=== PATIENT | female | born 1970 | race Two or more races ===

== ENCOUNTER 2025-07-16 07:46 | Inpatient (IN) | payer MEDICAID, SELFPAY ==
[2025-07-16] VITALS (9 sets, daily range): BP systolic 124–168; BP diastolic 55–87; PULSE 58–84; RESP 16–20; TEMP 36.3–36.5; O2SAT 95–100; BMI 30.9
--- NOTE | 2025-07-16 | XR_ITS ---
Examinations: MRI Brain without intravenous contrast. MRA brain without intravenous contrast. MRA carotids without intravenous contrast 3-D vascular reconstructions Date and time of exam: July 16, 2025, 1659 hours INDICATIONS: Onset dizziness weakness beginning this morning Technique: Multiple axial and sagittal images of the brain have been obtained MRA brain carotid images without contrast obtained, including 3-D postprocessing, vascular maximum intensity projection images Findings: Sellaturcica is not enlarged. The optic chiasm and infundibular stalk are not remarkable. Prepontine and interpeduncular cisterns are not enlarged. No localized enlargement of the medulla or kevin. Fourth ventricle and cerebellar tonsils normal in position. Subacute hemorrhage is not seen. Fourth ventricle is midline. Mass in the cerebellopontine angle region is not evident. 7th and 8th nerve complexes exhibits symmetry. Globes are symmetrical with no retro-orbital mass. Increased white matter signal not seen, FLAIR images are degraded by patient motion Diffusion-weighted images demonstrate no foci restricted diffusion Mass-effect upon the ventricular system is not identified. MRA carotid images no carotid significant stenoses. MRA brain images no cerebral large vessel arterial occlusions Impression: Negative for acute hemorrhage mass effect or midline shift No acute infarct No findings diagnostic for demyelinating disease No significant carotid stenoses No cerebral large vessel arterial occlusions
--- NOTE | 2025-07-16 08:16 | PD.EDRME ---
Rapid Medical Screening Exam RME Arrival date/time: 07/16/25 07:46 Chief Complaint: Dizziness Time Seen by Provider: 07/16/25 07:55 Vital signs: Vital Signs Temperature 97.4 F 07/16/25 07:54 Pulse Rate 73 07/16/25 07:54 Respiratory Rate 18 07/16/25 07:54 Blood Pressure 145/82 H 07/16/25 07:54 Pulse Oximetry (%) 99 07/16/25 07:54 Oxygen Delivery Method Room Air 07/16/25 07:54 RME Narrative: 55-year-old female with a past medical history of vertigo who presents to the ER complaining of an acute exacerbation of her chronic vertigo however new onset speech changes where she states she is having difficulty speaking along with perioral numbness and chills which she woke up with after going to sleep at 830 and feeling normal. Denies vision changes, weakness. I briefly performed a screening evaluation to initiate work-up and expedite care. Complete history, physical exam, and plan of care is deferred to the provider in the main ED. Exam: Head: Normocephalic, atraumatic. Respiratory: Normal effort. No respiratory distress or accessory muscle use. Neuro: Speech normal. Skin: Warm, dry, normal color. Psych: Pleasant. Normal affect. Cooperative. Van negative Clinical Impression: Rule out CVA
--- NOTE | 2025-07-16 08:19 | XR_ITS ---
EXAMINATION: AP chest single view TECHNIQUE: AP portable semiupright chest single view Date and time: July 16, 2025, 0837 hours, comparison June 10, 2023 INDICATIONS: Focal neurologic deficit stroke today FINDINGS: No significant cardiac enlargement. No aspiration pneumonia. No pulmonary edema. Moderate osteopenia IMPRESSION: Negative for aspiration pneumonia
--- NOTE | 2025-07-16 08:19 | XR_ITS ---
Examination: CTA carotids with intravenous contrast CTA brain, head with intravenous contrast. 2-D sagittal, coronal reconstructions. 3-D reconstructions. Exam date and time: 07/16/2025 at 8:41 a.m. CTDI: vol (mGy) 44.5 DLP: (mGycm) 496 CLINICAL INDICATION: Slurred speech, dizziness evaluate for arterial abnormalities which might cause a possible stroke Technique: Multiple CTA axial brain, head carotid images post intravenous contrast injection 70 cc, Isovue-[id number]. 2-D sagittal, coronal reconstructions. 3-D reconstructions, 3-D post processing including vascular maximum intensity projection images. Low dose protocols were performed. One or more of the following dose reduction techniques were used; automated exposure control, adjustment of the mA and/or KV according to patient size, use of iterative reconstruction technique. Findings: In the cervical region the origin and appearance of both right and left common carotid arteries are normal. On the left side there is minimal calcification and very mild stenosis at the origin of the left internal carotid artery, but the left internal carotid artery is otherwise normal extending upwards into the left cavernous sinus. On the right the right common carotid and internal carotid artery are entirely normal throughout the cervical region, and again the right internal carotid extends normally upwards into the cavernous sinus. The left vertebral artery is normal throughout the cervical region extending up to the basilar artery. On the right side the vertebral artery is congenitally very tiny throughout its entire course, however in the posterior fossa it does communicate with the basilar artery. In the intracranial region, the proximal and peripheral portions of the anterior and middle cerebral arteries and posterior cerebral arteries are all normal In the left lobe of the thyroid gland there is a moderately large sharply circumscribed low-density lesion in the left lobe of the thyroid gland, measuring 19 x 24 mm in diameter. IMPRESSION: 1. There is very minimal atherosclerotic disease with a small calcification and very minimal insignificant narrowing of the origin of the left internal carotid artery at the bifurcation. 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 However it does communicate with the basilar artery. 3. There are a few atherosclerotic calcifications noted involving the intracavernous portion of the right and left internal carotid arteries, no significant narrowing is seen on either side 4. In all other respects this study is entirely normal 5 there is a moderately prominent sized low density sharply circumscribed nodule in the left lobe of the thyroid gland. It quite probably represents a cyst, but I strongly recommend thyroid ultrasound exam for better evaluation
--- NOTE | 2025-07-16 08:19 | EKG_ITS ---
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
--- NOTE | 2025-07-16 08:19 | XR_ITS ---
Examination: CT brain head without contrast. 2-D sagittal coronal reconstructions Date and time of exam: July 16, 2025, 0825 hours, comparison August 18, 2022 INDICATIONS: Stroke alert, onset slurred speech today CTDI: vol (mGy): 49.6 DLP: (mGycm): 961 Technique: Multiple CT axial sections of the brain have been obtained, 5 mm slice thickness. Contrast has not been administered. 2-D sagittal, coronal reconstructions have been obtained Low dose protocols were performed. One or more of the following dose reduction techniques were used; automated exposure control, adjustment of the mA and/or KV according to patient size, use of iterative reconstruction technique. Findings: No significant ventricular enlargement. Intra-axial or extra-axial hemorrhage density is not seen. No mass effect or midline shift Basal cisterns are not remarkable. Fourth ventricle is midline. Cranial vault intact. Impression: Negative for acute hemorrhage, mass effect or midline shift
--- NOTE | 2025-07-16 08:20 | PC.NURSE ---
Pt. in CT.
--- NOTE | 2025-07-16 08:25 | PC.NURSE ---
Dr. Tatum Meier on tele monitor assessing pt. and talking to pt.
--- NOTE | 2025-07-16 08:35 | PC.NURSE ---
Pt. laying on CT bed and sat pt. up, pt. vomited 200 mls green bile and was diaphoretic and pale, after sitting her up.
[2025-07-16 08:41] LABS: Basophils # (Auto) 0.0 Thou/mm3 (0.0-0.2); Basophils % (Auto) 1 % (0-2.5); Eosinophils # (Auto) 0.1 Thou/mm3 (0.0-0.5); Eosinophils % (Auto) 1 % (0-10); Hematocrit 35.9 % (36.0-46.0); Hemoglobin 12.0 g/dL (12.0-16.0); Immature Granulocytes Auto 0.06 Thou/mm3 (0.00-0.00); Lymphocytes # (Auto) 1.9 Thou/mm3 (1.0-4.8); Lymphocytes % (Auto) 24 % (10-50); Mean Corpuscular HGB Conc 33.4 g/dl (31.0-37.0); Mean Corpuscular Hemoglobin 31.2 pg (25.0-35.0); Mean Corpuscular Volume 93 fL (80-100); Monocytes # (Auto) 0.6 Thou/mm3 (0.0-0.8); Monocytes % (Auto) 7 % (0-12); Neutrophils # (Auto) 5.4 Thou/mm3 (1.8-7.7); Neutrophils % (Auto) 68 % (37-80); Nucleated Red Blood Cell # 0.00 Thou/mm3 (0.00-0.00); Nucleated Red Blood Cell % 0 /100 WBC (0); Platelet Count 328 Thou/mm3 (140-440); RDW Standard Deviation 43.7 fL (36.4-46.3); Red Blood Count 3.85 Miln/mm3 (4.00-5.20); White Blood Count 8.0 Thou/mm3 (3.6-11.0)
--- NOTE | 2025-07-16 08:42 | PC.NURSE ---
Sat pt. up again from laying position for chest X ray and pt. became diaphoretic , pale again. Pt. was dry heaving.
--- NOTE | 2025-07-16 08:45 | PC.NURSE ---
Pt. to room 18, via bed from CT.
[2025-07-16] MEDS: ONDANSETRON INJ 2 MG/ML INJ 2 ML 4 MG IVP ×2 (09:13→14:55)
[2025-07-16] MEDS: SODIUM CHLORIDE 0.9% 1000 ML 1,000 ML 100 ML IV ×2 (09:13→22:16)
[2025-07-16] MEDS: MECLIZINE HCL 25 MG TABLET 12.5 MG PO (09:13)
[2025-07-16 09:18] LABS: Alanine Aminotransferase 24 U/L (10-49); Albumin, Serum 4.8 gm/dL (3.5-5.0); Albumin/Globulin Ratio 1.7 (1.2-2.2); Alkaline Phosphatase 67 U/L (46-116); Anion Gap 13 (7-16); Aspartate Amino Transferase 33 U/L (0-34); BUN/Creatinine Ratio 23 Ratio (12-20); Bilirubin,Total 0.4 mg/dL (0.3-1.2); Blood Urea Nitrogen 23 mg/dL (9-23); Calcium 9.8 mg/dL (8.3-10.6); Calcium (Corrected) 9.8 mg/dL (8.5-10.1); Carbon Dioxide 21.9 mMol/L (20.0-31.0); Chloride 108 mMol/L (98-107); Creatinine (Component) 1.0 mg/dL (0.6-1.3); Estimated Creatinine Clearance 64.2 mL/min (>60); Globulin 2.8 gm/dL (2.3-3.5); Glucose 121 mg/dL (74-106); Magnesium 1.8 mg/dL (1.6-2.6); Osmolality,Calculated 289 (275-295); Potassium 4.4 mMol/L (3.4-5.1); Sodium 143 mMol/L (136-145); Total Protein 7.6 gm/dL (5.7-8.2); Troponin I < 0.002 ng/mL (0.0-0.045); eGFR > 60 See Note
[2025-07-16 09:25] LABS: INR 1.0 (0.9-1.3); Partial Thromboplastin Time 23.5 Seconds (22.0-36.0); Prothrombin Time 10.2 Seconds (9.0-12.2)
--- NOTE | 2025-07-16 09:25 | ESCONSULT_ITS ---
History of Present Illness Data of Consult Requesting Physician: Dr. Figueroa Primary Care Provider: Physician No Primary/Family Consult Narrative History of present illness: [facility] Patient Name:???BETY RICHARDS Date of :???1970 Identification Number:??? Date of Service:???07/16/2025 08:20:58 Diagnosis:?R42 - Dizziness/ Vertigo/ Giddiness ?R20.2 - Paresthesia of skin ?F41.9 - Anxiety Impression: ?Dizziness/vertigo ?Nausea and vomiting ?Sensory loss, upper lip ?Anxiety ?DDx: TIA, acute stroke, hypertensive emergency, peripheral vertigo ? ?History is mostly obtained from patient's daughter at bedside, it seems she was last seen normal at 8:30 PM last night and woke up this morning with severe nausea and vomiting as well as vertigo. She does have a history of vertigo diagnosed a year ago, however she also complained of upper lip numbness and she was apparently tremulous all over hence daughter notified EMS. ? ?On exam, patient appears anxious/tremulous all over and she continues to complain of nausea. No focal deficits on exam except she did complain of slight sensory loss in the upper lip across the face, as well as mild sensory loss in the left leg although no clear motor weakness was noted. No ataxia but patient is tremulous in all extremities, likely due to anxiety. She did not think she would be able to walk due to severe nausea and vomiting hence gait testing was deferred explained to them that. ? ?Explained to patient and family that her symptoms may be related to a posterior circulation stroke however peripheral vertigo continues to be a differential. CT head is negative for acute findings and given patient's last known normal was last night, she is not a candidate for acute thrombolytic therapy. I briefly explained to them about next steps including CTA head and neck imaging and potential mechanical thrombectomy if imaging indicates, she would like any interventions if indicated. For now she will need to stay back for further stroke workup, patient and daughter are agreeable. ? ?CT head is negative for acute findings, CTA negative for LVO ? ?PLAN: ?- Check lipid panel and HbA1c ?- CTA report mentions enlarged thyroid, US recommended by radiology ?- Start ASA 81 mg daily ?- MRI brain without contrast ?- Echocardiogram ?- PT/OT/Speech therapy ?- outpatient neurology follow up ?- If MRI brain negative for acute stroke, consider ENT follow-up for management of possible peripheral vertigo ? ? ?Discussed with ER attending Dr. Figueroa. Our recommendations are outlined below. Recommendations: ? Stroke/Telemetry Floor ? Neuro Checks ? Bedside Swallow Eval ? DVT Prophylaxis ? IV Fluids, Normal Saline ? Euglycemia and Avoid Hyperthermia (PRN Acetaminophen) Sign Out: ? Discussed with Emergency Department Provider Advanced Imaging: CTA Head and Neck Completed. LVO:No Patient is not a candidate for BRIANA Metrics: Last Known Well: 07/15/2025 20:30:00 Arrival Time: 07/16/2025 08:16:00 Activation Time: 07/16/2025 08:20:58 Initial Response Time: 07/16/2025 08:22:50Symptoms: vertigo, lip numbness, speech changes . Initial patient interaction: 07/16/2025 08:45:37 NIHSS Assessment Completed: 07/16/2025 08:53:38Patient is not a candidate for Thrombolytic. Thrombolytic Medical Decision: 07/16/2025 08:56:24Patient was not deemed candidate for Thrombolytic because of following reasons: LKW outside 4.[address] Head: I personally reviewed all the CT images that were available to me and it showed: no acute findings Primary Provider Notified of Diagnostic Impression and Management Plan on: 07/16/2025 09:14:11 History of Present Illness:Patient is a 55 year old Female. Patient was brought by EMS for symptoms of vertigo, lip numbness, speech changes . History is obtained from patient's daughter Kinza at bedside. Bedside washing machine operator helped with translation. Patient reportedly woke up at 6 AM this morning, and complained of severe vertigo, along with severe nausea and had multiple episodes of vomiting. Patient reportedly has a h/o vertigo diagnosed a year ago, but pt had additional complaints of lip numbness and changes in her speech (more effortful). Family had to get a wheelchair as she complained of feeling unsteady, and she looked tremulous. Daughter denies that patient has any known cardiovascular risk factors, she is apparently not on any prescription medications at this time. Past Medical History: ?There is no history of Hypertension ?There is no history of Diabetes Mellitus ?There is no history of Hyperlipidemia Medications: No Anticoagulant use? No Antiplatelet use Reviewed EMR for current medications Allergies:? Reviewed Social History: Smoking: No Alcohol Use: No Family History: There is no family history of premature cerebrovascular disease pertinent to this consultation ROS : 14 Points Review of Systems was performed and was negative except mentioned in HPI. Past Surgical History: There Is No Surgical History Contributory To Today?s Visit Examination: BP(168/87),?Pulse(70),?Blood Glucose(115) 1A: Level of Consciousness - Alert; keenly responsive?+ 0 1B: Ask Month and Age - Both Questions Right?+ 0 1C: Blink Eyes & Squeeze Hands - Performs Both Tasks?+ 0 2: Test Horizontal Extraocular Movements - Normal?+ 0 3: Test Visual Ochoa - Partial Hemianopia?+ 1 4: Test Facial Palsy (Use Grimace if Obtunded) - Minor paralysis (flat nasolabial fold, smile asymmetry)?+ 1 5A: Test Left Arm Motor Drift - No Drift for 10 Seconds?+ 0 5B: Test Right Arm Motor Drift - No Drift for 10 Seconds?+ 0 6A: Test Left Leg Motor Drift - No Drift for 5 Seconds?+ 0 6B: Test Right Leg Motor Drift - No Drift for 5 Seconds?+ 0 7: Test Limb Ataxia (FNF/Heel-Aleman) - No Ataxia?+ 0 8: Test Sensation - Mild-Moderate Loss: Less Sharp/More Dull?+ 1 9: Test Language/Aphasia - Normal; No aphasia?+ 0 10: Test Dysarthria - Normal?+ 0 11: Test Extinction/Inattention - No abnormality?+ 0 NIHSS Score:?3 NIHSS Free Text :?gait: Deferred as patient was having severe nausea and throwing up with any positional changes Pre-Morbid Modified Lazaro Scale: 0 Points = No symptoms at all Spoke with :?Dr. Figueroa This consult was conducted in real time using interactive audio and video technology. Patient was informed of the technology being used for this visit and agreed to proceed. Patient located in hospital and provider located at home/office setting. Patient is being evaluated for possible acute neurologic impairment and high probability of imminent or life-threatening deterioration. I spent total of 40 minutes providing care to this patient, including time for face to face visit via telemedicine, review of medical records, imaging studies and discussion of findings with providers, the patient and/or family. Dr Tatum Meier [facility] For Inpatient follow-up with [facility] physician please call [facility] at . As we are not an outpatient service for any post hospital discharge needs please contact the hospital for assistance. If you have any questions for the [facility] physicians or need to reconsult for clinical or diagnostic changes please contact us via [facility] at . Non-radiologist review of imaging performed to assist with emergent clinical decision-making. Remote physician workstations do not possess the same resolution, calibration, or diagnostic capabilities as hospital-based radiology reading stations, and formal radiologist read is necessary. Signature :Robert Meier cc:: cc: Meds Home Medications and Allergies Home Medications ?Medication ?Instructions ?Recorded ?Confirmed ?Type cyanocobalamin (vitamin B-12) 1,000 mcg PO QDAY #0 tab s 01/23/17 History 1,000 mcg tablet (Vitamin B-12) ferrous sulfate 325 mg (65 mg 325 mg PO BIDWM #0 tabs 01/23/17 History iron) tablet (Feosol) Allergies Allergy/AdvReac Type Severity Reaction Status Date / Time No Known Allergies Allergy Verified 06/10/23 21:53 Exam - Neurology Vital Signs Temp Pulse Resp BP Pulse Ox O2 Del Method 97.7 F 70 20 147/78 H 97 Room Air 07/16/25 09:00 07/16/25 09:00 07/16/25 09:00 07/16/25 09:00 07/16/25 09:00 07/16/25 09:00 Results Labs 07/16/25 08:22 07/16/25 08:22 Labs: Short CBC 07/16/25 Range/Units 08:22 WBC 8.0 (3.6-11.0) Thou/mm3 Hgb 12.0 (12.0-16.0) g/dL Hct 35.9 L (36.0-46.0) % Plt Count 328 (140-440) Thou/mm3 [facility] 07/16/25 08:22 Sodium 143 Potassium 4.4 Chloride 108 H Carbon Dioxide 21.9 BUN 23 Creatinine 1.0 Glucose 121 H Calcium 9.8 Cardiac Enzymes 07/16/25 Range/Units 08:22 Troponin I < 0.002 (0.0-0.045) ng/mL Liver Function 07/16/25 Range/Units 08:22 Total Bilirubin 0.4 (0.3-1.2) mg/dL AST 33 (0-34) U/L ALT 24 (10-49) U/L Alkaline Phosphatase 67 (46-116) U/L Albumin 4.8 (3.5-5.0) gm/dL
[2025-07-16 09:30] LABS: HCG Titer if Positive Negative
[2025-07-16 09:38] LABS: Collection Type, Urine Voided; Squamous Epithelial Cell,Urine 0 /hpf (0-5); WBC,Urine 0 /hpf (0-5)
[2025-07-16 09:49] LABS: RBC,Urine 2 /hpf (0-3)
[2025-07-16 09:50] LABS: Bilirubin,Urine Negative (Negative); Blood,Urine Negative (Negative); Clarity,Urine Clear (Clear/Hazy); Color,Urine Lt Yellow (Lt Yel-Yel); Culture Indicated,Urine Not Indicated; Glucose, Urine Negative (Negative); Ketones,Urine Negative (Negative); Leukocyte Esterase,Urine Negative (Negative); Nitrite,Urine Negative (Negative); PH,Urine 6.5 (5.0-7.0); Protein,Urine Trace (Neg - Trace); Specific Gravity,Urine 1.010 (1.001-1.035); Urobilinogen,Urine 0.2 mg/dL (0.0-1.0)
[2025-07-16 09:51] LABS: Amphetamine/Methamp Scrn,U Negative (Negative); Barbiturate Screen,Urine Negative (Negative); Benzodiazepines Screen,Urine Negative (Negative); Benzoylecgonine Screen, Ur Negative (Negative); Fentanyl Screen,Urine Negative (Negative); Opiate Screen,Urine Negative (Negative); THC Screen,Urine Negative (Negative)
--- NOTE | 2025-07-16 09:59 | PD.EDDIZZY ---
ED Dizzyness RME/HPI General Chief Complaint: Dizziness Stated Complaint: DIZZINESS AND VOMITING Time Seen by Provider: 07/16/25 07:55 Arrival date/time: 07/16/25 07:46 Limitations: no limitations RME / HPI RME / HPI Narrative: 55-year-old female with a past medical history of vertigo who presents to the ER complaining of an acute exacerbation of her chronic vertigo however new onset speech changes where she states she is having difficulty speaking along with perioral numbness and chills which she woke up with after going to sleep at 830 and feeling normal. Denies vision changes, weakness. I briefly performed a screening evaluation to initiate work-up and expedite care. Complete history, physical exam, and plan of care is deferred to the provider in the main ED. DR. HOLBROOK MAIN ED EVALUATION: 55 year old female with prior episodes of vertigo, otherwise no other stated medical history presents to the ED for evaluation of room-spinning dizziness beginning at 0600 AM today. Reportedly awoke with the symptoms which have remained constant since. States her dizziness is aggravated with head movements and only minimally improved with closing her eyes. Accompanied by nausea, vomiting, and difficulty walking due to feeling unsteady. Patient additionally reports feeling anxious and numbness sensation to her lips. No other associated symptoms reported. Denies fevers, chills, chest pain, cough, shortness of breath, abdominal pain, diarrhea, or urinary symptoms. Exam: Head: Normocephalic, atraumatic. Respiratory: Normal effort. No respiratory distress or accessory muscle use. Neuro: Speech normal. Skin: Warm, dry, normal color. Psych: Pleasant. Normal affect. Cooperative. Van negative Impression: Rule out CVA Related Data Home Medications ?Medication ?Instructions ?Recorded ?Confirmed cyanocobalamin (vitamin B-12) 1,000 mcg PO QDAY #0 tabs 01/23/17 1,000 mcg tablet (Vitamin B-12) ferrous sulfate 325 mg (65 mg 325 mg PO BIDWM #0 tabs 01/23/17 iron) tablet (Feosol) Previous Rx's ?Medication ?Instructions ?Recorded albuterol sulfate 90 mcg/actuation 2 puff inhalation Q6HR PRN 12/29/16 aerosol inhaler (ProAir HFA) WHEEZING #1 inh Hydrocodone/Acetaminophen * (NORCO 1 tab PO Q4H PRN ABDOMINAL PAIN 01/25/17 5/325 *) #30 tabs calcium 600 mg-D3 20 mcg-magnesium 1 tab PO QDAY #30 tabs 03/28/21 50 zs-Xi-vemtuk-raghav-boron tablet (Calcium 600-D3 Plus (mag-zinc)) meclizine 25 mg tablet 25 mg PO TID PRN dizziness #10 tabs 08/19/22 ondansetron 4 mg disintegrating 4 mg PO Q8H PRN nausea and 08/19/22 tablet vomiting #14 tabs meclizine 50 mg tablet (Antivert) 50 mg PO BID PRN dizziness #30 tabs 06/11/23 ondansetron 4 mg disintegrating 4 mg PO Q8H PRN nausea and 06/11/23 tablet vomiting #20 tabs Allergies Allergy/AdvReac Type Severity Reaction Status Date / Time No Known Allergies Allergy Verified 06/10/23 21:53 Review of Systems Review of Systems Systems Reviewed: All systems reviewed, normal except as documented Past Medical History Past Medical History CARDIAC: Negative Cardiac Disorders or Congestive Heart Failure RESPIRATORY: Negative Chronic Obstructive Pulmonary Disease (COPD) or Asthma GENITOURINARY: Negative Renal Disease ENDOCRINE: Negative Diabetes Mellitus Type 1 or Diabetes Mellitus Type 2 HEMATOLOGIC: Negative Sickle Cell Disease Social History SMOKING STATUS: Never smoker SUBSTANCE USE: does not use ED Exam General Limitations: Present no limitations General appearance: Present alert and anxious Head Head exam: Present atraumatic, normocephalic and normal inspection Eye Eye exam: Present normal appearance, PERRL and EOMI ENT ENT exam: Present normal exam, normal oropharynx and mucous membranes moist Neck Neck exam: Present normal inspection, full ROM and trachea midline Chest Chest inspection: Present normal inspection and symmetric chest wall rise Respiratory Respiratory exam: Present normal lung sounds bilaterally Cardiovascular Cardiovascular exam: Present regular rate, normal rhythm and normal heart sounds Abdominal Exam Abdominal exam: Present soft and normal bowel sounds Extremities Exam Extremities exam: Present normal inspection and full ROM Back Exam Back exam: Present normal inspection and full ROM Neurological Exam Neurological exam: Present alert, oriented X3, CN II-XII intact and other (On my examination, patient is neurologically intact ); Absent motor sensory deficit Psychiatric Psychiatric exam: Present anxious Skin Skin exam: Present warm, dry, intact and normal color Course Quality Measures Suspected type of Stroke: Non Acute Last known well (date): 07/15/25 Last known well (time): 20:30 Tenecteplase given: Reason(s) TPA not given: Outside the time window not given stroke Orders Category Date Time Status Bedside Blood Glucose NOW Care 07/16/25 08:19 Active COVID-19 Screening Questionnaire NOW Care 07/16/25 09:48 Active Service Team Leader NOW Care 07/16/25 08:19 Active Continuous Pulse Oximetry NOW Care 07/16/25 08:19 Completed Decision to Admit X1 Care 07/16/25 09:48 Active EKG (ED ONLY) *Do not use* NOW Care 07/16/25 08:19 Completed In and Out Catheter NEEDED Care 07/16/25 08:19 Active Insert IV NOW Care 07/16/25 08:19 Active NIH Stroke Scale now Care 07/16/25 08:19 Active NPO NOW Care 07/16/25 08:19 Active Nurse Swallow Screen x1 Care 07/16/25 08:19 Active Consult to Neurology / Tele-Neurology Routine Cons 07/16/25 08:[address] angio stroke protocol Stat Exams 07/16/25 08:[address] stroke protocol Stat Exams 07/16/25 08:19 Completed EKG (ED Only) Stat Exams 07/16/25 08:19 Draft XR chest 1V portable Stat Exams 07/16/25 08:19 Completed CBC Stat Lab 07/16/25 08:22 Completed Comprehensive Metabolic Panel Stat Lab 07/16/25 08:22 Completed Drug Screen,Urine Stat Lab 07/16/25 09:33 Completed HCG Titer if Positive Stat Lab 07/16/25 08:22 Completed Magnesium Stat Lab 07/16/25 08:22 Completed Partial Thromboplastin Time Stat Lab 07/16/25 08:22 Completed Prothrombin Time with INR Stat Lab 07/16/25 08:22 Completed Troponin I Stat Lab 07/16/25 08:22 Completed Urinalysis, C/S if Indicated Stat Lab 07/16/25 09:33 Completed Aspirin [Ecotrin] Med 07/16/25 09:41 Discontinued 81 mg PO X1 ONE Labetalol* IV [Trandate IV] Med 07/16/25 08:19 Active 10 mg IVP Q15M PRN Meclizine HCl [Antivert] Med 07/16/25 08:55 Discontinued 12.5 mg PO X1 ONE Ondansetron Inj [Zofran Inj] Med 07/16/25 08:19 Active 4 mg IVP Q4HR PRN Sodium Chloride 0.9% 1000 ml [Ns] 1,000 ml Med 07/16/25 09:00 Active IV 100 mls/hr Oxygen Delivery NOW RT 07/16/25 08:19 Active Vital Signs Vital signs: Vital Signs Temperature 97.4 F 07/16/25 07:54 Pulse Rate 73 07/16/25 07:54 Respiratory Rate 18 07/16/25 07:54 Blood Pressure 145/82 H 07/16/25 07:54 Pulse Oximetry (%) 99 07/16/25 07:54 Oxygen Delivery Method Room Air 07/16/25 07:54 Pulse ox is 99% on room air which is adequate. Dizziness MDM Narrative MDM Narrative:: I, Nancy Marino, am scribing for and in the presence of Dr. Holbrook. 0914a: I spoke with teleneurologist Dr. Meier. States patient is not a TNK candidate, LKW > 4.5 hours. 0945a: I spoke with hospitalist team A for admission. Discussed patients PMHx, HPI, ED course, exam findings, labs, and radiology results. The hospitalist agree to accept the patient for admission. Patient data External records reviewed:: [facility] previous records Clinical information provided by:: patient Social determinants that could affect healthcare access:: none Patient has the following chronic illnesses:: No chronic medical hx reported Prior episodes of vertigo, first occurring ~ 1 year ago. How is presenting disease/condition affected by chronic disease/condition?: no chronic disease Evaluation data The following diagnostics were reviewed and interpreted by me:: lab results, radiology exam(s) and EKG tracing(s) (EKG @ 09:00 AM, interpreted by me, normal sinus rhythm, rate 68, no STEMI. ) Lab and/or radiology exams considered but not ordered:: None Interpretation Summary: Ordering Physician: Rip Luong PA-C Date of Service: 07/16/25 Procedure(s): XR chest 1V portable Accession Number(s): [id number] cc: Angelo Mireles MD; Rip Luong PA-C~ EXAMINATION: AP chest single view TECHNIQUE: AP portable semiupright chest single view Date and time: July 16, 2025, 0837 hours, comparison June 10, 2023 INDICATIONS: Focal neurologic deficit stroke today FINDINGS: No significant cardiac enlargement. No aspiration pneumonia. No pulmonary edema. Moderate osteopenia IMPRESSION: Negative for aspiration pneumonia Dictated By: Angelo Mireles MD Signed By: <Electronically signed by Angelo Mireles MD in OV> 07/16/25 0907 Ordering Physician: Rip Luong PA-C Date of Service: 07/16/25 Procedure(s): CT stroke protocol Accession Number(s): [id number] cc: Angelo Mireles MD; Rip Luong PA-C~ Examination: CT brain head without contrast. 2-D sagittal coronal reconstructions Date and time of exam: July 16, 2025, 0825 hours, comparison August 18, 2022 INDICATIONS: Stroke alert, onset slurred speech today CTDI: vol (mGy): 49.6 DLP: (mGycm): 961 Technique: Multiple CT axial sections of the brain have been obtained, 5 mm slice thickness. Contrast has not been administered. 2-D sagittal, coronal reconstructions have been obtained Low dose protocols were performed. One or more of the following dose reduction techniques were used; automated exposure control, adjustment of the mA and/or KV according to patient size, use of iterative reconstruction technique. Findings: No significant ventricular enlargement. Intra-axial or extra-axial hemorrhage density is not seen. No mass effect or midline shift Basal cisterns are not remarkable. Fourth ventricle is midline. Cranial vault intact. Impression: Negative for acute hemorrhage, mass effect or midline shift Dictated By: Angelo Mireles MD Signed By: <Electronically signed by Angelo Mireles MD in OV> 07/16/25 0832 Ordering Physician: Rip Luong PA-C Date of Service: 07/16/25 Procedure(s): CT angio stroke protocol Accession Number(s): [id number] cc: Angelo Kate MD; Rip Luong PA-C~ Examination: CTA carotids with intravenous contrast CTA brain, head with intravenous contrast. 2-D sagittal, coronal reconstructions. 3-D reconstructions. Exam date and time: 07/16/2025 at 8:41 a.m. CTDI: vol (mGy) 44.5 DLP: (mGycm) 496 CLINICAL INDICATION: Slurred speech, dizziness evaluate for arterial abnormalities which might cause a possible stroke Technique: Multiple CTA axial brain, head carotid images post intravenous contrast injection 70 cc, [id number]. 2-D sagittal, coronal reconstructions. 3-D reconstructions, 3-D post processing including vascular maximum intensity projection images. Low dose protocols were performed. One or more of the following dose reduction techniques were used; automated exposure control, adjustment of the mA and/or KV according to patient size, use of iterative reconstruction technique. Findings: In the cervical region the origin and appearance of both right and left common carotid arteries are normal. On the left side there is minimal calcification and very mild stenosis at the origin of the left internal carotid artery, but the left internal carotid artery is otherwise normal extending upwards into the left cavernous sinus. On the right the right common carotid and internal carotid artery are entirely normal throughout the cervical region, and again the right internal carotid extends normally upwards into the cavernous sinus. The left vertebral artery is normal throughout the cervical region extending up to the basilar artery. On the right side the vertebral artery is congenitally very tiny throughout its entire course, however in the posterior fossa it does communicate with the basilar artery. In the intracranial region, the proximal and peripheral portions of the anterior and middle cerebral arteries and posterior cerebral arteries are all normal In the left lobe of the thyroid gland there is a moderately large sharply circumscribed low-density lesion in the left lobe of the thyroid gland, measuring 19 x 24 mm in diameter. IMPRESSION: 1. There is very minimal atherosclerotic disease with a small calcification and very minimal insignificant narrowing of the origin of the left internal carotid artery at the bifurcation. 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 However it does communicate with the basilar artery. 3. There are a few atherosclerotic calcifications noted involving the intracavernous portion of the right and left internal carotid arteries, no significant narrowing is seen on either side 4. In all other respects this study is entirely normal 5 there is a moderately prominent sized low density sharply circumscribed nodule in the left lobe of the thyroid gland. It quite probably represents a cyst, but I strongly recommend thyroid ultrasound exam for better evaluation Dictated By: Angelo Kate MD Signed By: <Electronically signed by Angelo Kate MD in OV> 07/16/25 0910 Medications / Prescriptions Medications or Prescriptions considered but not ordered:: None Medication administrations:: Medication Administration History Acetaminophen (Acetaminophen 325 Mg Tablet) 650 mg PO Q6H PRN PRN Reason: Fever >101.5 Stop: 08/15/25 10:06 Dextrose (Dextrose 50%-Water Inj 50 Ml Syringe) 25 ml IV Q15MIN PRN PRN Reason: BG 50-70 responsive npo pt Stop: 08/15/25 10:06 Glucagon (Glucagon Inj 1 Mg Vial) 1 mg IM Q15MIN PRN PRN Reason: BG <70, and no IV access Sodium Chloride (Ns) 1,000 mls @ 100 mls/hr IV .Q10H JUAN ALBERTO Stop: 08/15/25 08:59 Last Admin: 07/16/25 09:13 Dose: 100 mls/hr Documented By: BEAR Labetalol HCl (Labetalol Inj 5 Mg/Ml Vial 4 Ml) 10 mg IVP Q15M PRN PRN Reason: hypertension Ondansetron HCl (Ondansetron Inj 2 Mg/Ml Inj 2 Ml) 4 mg IVP Q4HR PRN PRN Reason: NAUSEA OR VOMITING Stop: 08/15/25 08:18 Last Admin: 07/16/25 09:13 Dose: 4 mg Documented By: FC Discontinued Medications Aspirin (Aspirin Ec 81 Mg Tabec) 81 mg PO X1 ONE Stop: 07/16/25 09:42 Last Admin: 07/16/25 10:14 Dose: 81 mg Documented By: BEAR Meclizine HCl (Meclizine Hcl 25 Mg Tablet) 12.5 mg PO X1 ONE Stop: 07/16/25 08:56 Last Admin: 07/16/25 09:13 Dose: 12.5 mg Documented By: BEAR See above Consultations Consultation(s) initiated? (list below): Yes Consultation #1 (Physician, Specialty, Details): See MDM Diagnosis Dizziness Differential Diagnosis: benign paroxysmal positional vertigo, orthostatic hypotension, cerebrovascular accident, transient cerebral ischemia and other (anxiety ) Most likely diagnosis given after review of the tests above:: Dizziness Nausea and vomiting Paresthesia Anxiety Admission Indicated Admission indicated?: indicated Admission Request Was there a request for admission?: Yes Admission Attestation Admission request attestation: Discussed case with [] from Hospitalist service regarding admission. Discussed patients ED course, exam findings, labs, and radiology results. The Hospitalist [agrees,declines] to accept the patient for admission. Disposition Plan Disposition Plan: Admit Discharge Plan Plan Patient Disposition: Admit Acute Care w/in Hospital Problem List Clinical Impression: Dizziness, Nausea and vomiting, Paresthesia, Anxiety
[2025-07-16] MEDS: ASPIRIN EC 81 MG TABEC PO (10:14)
--- NOTE | 2025-07-16 10:18 | XR_ITS ---
EXAMINATION: Thyroid sonography complete TECHNIQUE: Grayscale sonographic images thyroid lobes Date and time: July 16, 2025, 11:00 a.m. INDICATIONS: CT examination July 16, 2025 left thyroid nodule FINDINGS: Right thyroid 5.2 cm Mid pole nodule 4 x 5 mm Lower pole nodule 13 x 8 mm Left thyroid 5.6 cm Upper pole nodule 6 x 6 mm Mid pole hypoechoic nodule 25 x 18 x 19 mm IMPRESSION: Bilateral thyroid nodules as above Consider ultrasound-guided fine-needle aspiration of the large nodule in the mid left thyroid lobe
--- NOTE | 2025-07-16 10:22 | ESHP_ITS ---
<Statement entered by Ramakrishna Argueta MD - 07/16/25 15:36> Patient was examined and case was reviewed with team including attending physician. Note reviewed, I agree with most of its contents and agree with the patient's care as documented by Dr. Holt 55y/o F with no PMHx who presented to the ED due to dizziness and vertigo. At 6am patient had episodes of dizziness with multiple episodes with non-bloody vomiting. She also endorses that this has happened in the past usually in the winter months. Stroke alert was called and Head CT and Head/Neck CTA showed no acute hemorrhage, no midline shift, no mass effect or LVO. Tele neuro was consulted and recommended MRI. Will complete rest of CVA work up. Case discussed with my attending Dr. Adrian Argueta MD PGY-2 Documentation for date of: 07/16/25 HPI History of Present Illness Chief complaint: Dizziness, vertigo History of present illness: Mrs. Peralta is a Israeli speaking, 55F with no known past medical history presented to the ED for dizziness and vertigo. Patient reports at approximately 6AM this morning, she started to experience dizziness that is worse with motion, causing her to feel nauseous and subsequently vomited. She describes that the room was spinning with head motion. Patient states that she had similar episode last year around Winter time, where she was diagnosed with vertigo. She denies chest pain, shortness of breathe, focal weakness, vision change, numbness, diarrhea, chill, however, does endorse parietal headache. Patient had no prior history of TIA, stroke, heart disease, DVT, or clotting disorder. Patient does not see a PCP or any specialists. She does not take any prescription medication. A stroke alert was initiated in the ED. CT head is negative for acute findings and CTA negative for LVO. Tele-Neuro was consulted by ED team. Given negative CT head findings and LWK last night, she was not a candidate for thrombolytic. On exam, patient was resting comfortably in bed, GCS 15, with no focal neuro deficit. CN II - XII intact. This patient was admitted for CVA rule out. ED Course In the ED, WBC 8, Hgb 12, Na 143, K 4.4, BUN 23, Automatic Buffing Wheel Former 1.0, Glucose 121. VSS, Afebrile. Patient was GCS 15 with NIHSS of 0. Stroke Alert initiated, given LWK last night, not a candidate for TnK. CTH and CTA H/N unremarkable. Patient was given ASA 81mg, NaCl 1L, Meclizine 12.5mg, and Zofran 4mg. ROS * Constitutional: NAD, a/o x 3, denies fever/chills. * GI: Denies nausea, vomiting. * CV: Denies chest pain or palpitations. * Resp: Denies SOB, cough * : Denies dysuria, CVA tenderness, suprapubic tenderness. * Neuro: +dizziness with motion, no focal deficits. Past Medical History * Denies Social History * Lives at home, independent baseline. * Denies smoke or drug use. Surgical History * Unknown Allergies * NKDA Home Meds * Tylenol PRN Exam Vital Signs Temp Pulse Resp BP Pulse Ox O2 Del Method 97.7 F 70 20 147/78 H 97 Room Air 07/16/25 09:00 07/16/25 09:00 07/16/25 09:00 07/16/25 09:00 07/16/25 09:00 07/16/25 09:00 Narrative Exam General: Awake and in no acute distress. A/O x 3. GCS 15. HEENT: Normocephalic, atraumatic, mucous membranes moist. Heart: Regular rate and rhythm Lungs: Clear to auscultation with no wheezing or crackles. Abdomen: Soft, nondistended, nontender. No guarding or rebound tenderness. Neurologic: Alert and oriented x3, no gross neurological deficit, and patient able to move all 4 extremities. CN II-XII intact. Extremities: 5/5 strength in both UE and LE. Slight decrease in sensation in LLE. Skin: Dry, clean, intact. No rash. No ecchymoses. Results: Labs 07/17/25 05:15 07/17/25 05:15 Labs: Short CBC 07/16/25 Range/Units 08:22 WBC 8.0 (3.6-11.0) Thou/mm3 Hgb 12.0 (12.0-16.0) g/dL Hct 35.9 L (36.0-46.0) % Plt Count 328 (140-440) Thou/mm3 [facility] 07/16/25 08:22 Sodium 143 Potassium 4.4 Chloride 108 H Carbon Dioxide 21.9 BUN 23 Creatinine 1.0 Glucose 121 H Calcium 9.8 Cardiac Enzymes 07/16/25 Range/Units 08:22 Troponin I < 0.002 (0.0-0.045) ng/mL Liver Function 07/16/25 Range/Units 08:22 Total Bilirubin 0.4 (0.3-1.2) mg/dL AST 33 (0-34) U/L ALT 24 (10-49) U/L Alkaline Phosphatase 67 (46-116) U/L Albumin 4.8 (3.5-5.0) gm/dL Quality Measures Quality Measures stroke Suspected type of Stroke: Non Acute Last known well (date): 07/15/25 Last known well (time): 20:30 Tenecteplase given: Reason(s) Tenecteplase not given: Outside the time window not given Rehab services: PT evaluation ordered VTE Prophylaxis: pharmaceutical Antithrombotic by day 2:: ordered Statin ordered: <75 y/o high intensity dose Anticoagulation ordered for A-fib or flutter (current or hx): not indicated Medications Home Medications and Allergies Home Medications ?Medication ?Instructions ?Recorded ?Confirmed ?Type cyanocobalamin (vitamin B-12) 1,000 mcg PO QDAY #0 tab s 01/23/17 07/16/25 History 1,000 mcg tablet (Vitamin B-12) ferrous sulfate 325 mg (65 mg 325 mg PO BIDWM #0 tabs 01/23/17 07/16/25 History iron) tablet (Feosol) Allergies Allergy/AdvReac Type Severity Reaction Status Date / Time No Known Allergies Allergy Verified 06/10/23 21:53 Visit Medications Acetaminophen (Acetaminophen 325 Mg Tablet) 650 mg PO Q6H PRN PRN Reason: Fever >101.5 Stop: 08/15/25 10:06 Dextrose (Dextrose 50%-Water Inj 50 Ml Syringe) 25 ml IV Q15MIN PRN PRN Reason: BG 50-70 responsive npo pt Stop: 08/15/25 10:06 Glucagon (Glucagon Inj 1 Mg Vial) 1 mg IM Q15MIN PRN PRN Reason: BG <70, and no IV access Sodium Chloride (Ns) 1,000 mls @ 100 mls/hr IV .Q10H JUAN ALBERTO Stop: 08/15/25 08:59 Last Admin: 07/16/25 09:13 Dose: 100 mls/hr Labetalol HCl (Labetalol Inj 5 Mg/Ml Vial 4 Ml) 10 mg IVP Q15M PRN PRN Reason: hypertension Ondansetron HCl (Ondansetron Inj 2 Mg/Ml Inj 2 Ml) 4 mg IVP Q4HR PRN PRN Reason: NAUSEA OR VOMITING Stop: 08/15/25 08:18 Last Admin: 07/16/25 09:13 Dose: 4 mg Discontinued Medications Aspirin (Aspirin Ec 81 Mg Tabec) 81 mg PO X1 ONE Stop: 07/16/25 09:42 Last Admin: 07/16/25 10:14 Dose: 81 mg Meclizine HCl (Meclizine Hcl 25 Mg Tablet) 12.5 mg PO X1 ONE Stop: 07/16/25 08:56 Last Admin: 07/16/25 09:13 Dose: 12.5 mg Assessment & Plan Plan Mrs. Peralta is a Israeli speaking, 55F with no known past medical history presented to the ED for dizziness and vertigo. GCS 15, NIHSS 0. Stroke alert initiated in ED with normal CT findings. Patient was admitted for CVA r/o. #Rule out CVA #BPPV #Dizziness #Peripheral vertigo #Headache Stroke alert initiated in the ED. GCS15, NIHSS0, no focal neuro deficit. Similar episode prior in 2022, was diagnosed with vertigo. - In-house neurology consulted, appreciate recs - MRI brain stroke protocol - Echocardiogram with bubble study - PT/OT/Speech therapy - Head of bed elevation 30 degrees - Neuro Checks Q4H - Bedside Swallow Eval - Euglycemia and Avoid Hyperthermia (PRN Acetaminophen) - Zofran 4mg PRN - Meclizine 25mg PO PRN - ASA 81mg PO QD - Atorvastatin 80mg PO HS - Pending HbA1c and lipid panel #Thyroid nodule CTA H/N noted circumscribed nodule in the left lobe of the thyroid gland. - Pending thyroid panel (TSH, T3, T4) - Thyroid Health maintenance Dispo: CVA r/o DVT prophylaxis: SCDs GI prophylaxis: N/A Antibiotics: N/A Bowel Regimen: N/A Diet: Regular diet after passing swallow screen Lines: Peripheral IV Code status: Full code Case discussed with my senior resident Dr. Ozuna Case discussed with my attending Dr. Adrian Holt DO PGY 1 Attending Provider Attestation/Addendum I have seen and examined the patient. I was physically present for the villafuerte portions of the services provided including history, physical exam, diagnosis, treatment plans and orders. I agree with assessment and plan of care as documented by residents. After examination of the patient and review of the clinical data I feel that this patient needs admission to the hospital for further treatment/evaluation. Even though this this note was carefully revised there may still be minor errors in plodding machine operator due to voice recognition software. Se Campbell MD
--- NOTE | 2025-07-16 10:31 | ECHO_ITS ---
Patient Info Name: Radha Quiles Age: 55 years : 1970 Gender: Female Ht: 163 cm Wt: 82 kg BSA: 1.95 m2 BP: 147 / 78 mmHg HR: 70 bpm Exam Date: 07/16/2025 12:16 PM Admit Date: 07/16/2025 Site: [facility] Room Number: ED [id number] Patient Status: I Exam Type: CA echo doppler complete Informatics Pharmacist: Sis Santiago Ordering Physician: Ernie Holt Study Info Indications Dizziness, vertigo, stroke alert ED - Contrast/Agitated Saline Contrast/Ag. Saline: Agitated Saline Amount: --- ml Primary Location: [facility] Left Ventricular Outflow Tract Name Value Normal LVOT 2D LVOT Diameter 1.9 cm LVOT Doppler LVOT Peak Velocity 121 cm/s LVOT Mean Gradient 3 mmHg LVOT VTI 26 cm LVOT VTI/AV VTI Ratio 0.7 LVOT Stroke Volume 73 ml Pulmonic Valve Name Value Normal PV Doppler PV Peak Velocity 115 cm/s Mitral Valve Name Value Normal MV Doppler MV Decel [place] 460 cm/s2 MV PHT 63 ms MV Area (PHT) 3.5 cm2 4.0-5.0 MV Diastolic Function MV E Peak Velocity 100 cm/s MV A Peak Velocity 101 cm/s MV E/A 1.0 MV Annular TDI MV Septal e' Velocity 9.1 cm/s MV E/e' (Septal) 10.9 MV Lateral e' Velocity 10.2 cm/s MV E/e' (Lateral) 9.8 MV e' Average 9.67 cm/s MV E/e' (Average) 10.4 Tricuspid Valve Name Value Normal TV Regurgitation Doppler TR Peak Velocity 248 cm/s Estimated PAP/RSVP RA Pressure 3 mmHg <=5 PA Systolic Pressure 28 mmHg <36 RV Systolic Pressure 28 mmHg <36 Aortic Valve Name Value Normal AV 2D/MM AV Cusp Sep (MM) 1.5 cm AV Doppler AV Peak Velocity 168 cm/s AV Mean Gradient 5 mmHg AV VTI 38 cm AV Area (Cont Eq VTI) 1.9 cm2 >=3.0 AV Area (Cont Eq Silvio) 2.0 cm2 AV DI (Silvio) 0.72 AV Regurgitation 2D LVOT Area 2.8 cm2 Ventricles Name Value Normal LV Dimensions 2D/MM IVS Diastolic Thickness (2D) 1.0 cm 0.6-0.9 LVID Diastole (2D) 4.3 cm 3.8-5.2 LVIW Diastolic Thickness (2D) 1.0 cm 0.6-0.9 LVID Systole (2D) 2.7 cm 2.2-3.5 LVOT Diameter 1.9 cm LV Mass (2D Cubed) 142.49 g 67.00-162.00 LV Mass Index (2D Cubed) 73 g/m2 43-95 Relative Wall Thickness (2D) 0.47 <=0.42 IVS/LVIW Diastolic Thickness (2D) 1.00 0.00-1.50 LV Fractional Shortening/Ejection Fraction 2D/MM LV Fractional Shortening (2D) 37 % 27-45 LV EF (2D Teichholz) 67 % Atria Name Value Normal LA Dimensions LA Volume (4C A-L) 78 ml LA Volume (BP A-L) 79 ml Left Ventricle Left ventricular chamber dimension is normal. Left ventricular systolic function is normal with visually estimated ejection fraction of 60-65%. There is mild concentric hypertrophy noted in the left ventricle. Left ventricular segmental wall motion is normal. There is grade I diastolic dysfunction in the left ventricle. Right Ventricle Right ventricular chamber dimension is normal. Right ventricular systolic function is normal. Left Atrium Left atrial chamber dimension is mildly enlarged. Right Atrium Right atrial chamber dimension is normal. Aortic Valve The aortic valve is trileaflet. There is no aortic valve sclerosis. There is no aortic valve stenosis with a peak velocity of 168 cm/s, mean gradient of 5 mmHg, and aortic valve area of 1.9 cm2. There is no aortic valve regurgitation. Pulmonic Valve The pulmonic valve is normal. There is no pulmonic valve stenosis. There is no pulmonic regurgitation. Mitral Valve The mitral valve has normal leaflets. There is no mitral valve stenosis. There is mild mitral valve regurgitation. Tricuspid Valve The tricuspid valve leaflets are normal. There is no tricuspid valve stenosis. There is mild tricuspid valve regurgitation. No pulmonary hypertension, estimated pulmonary arterial systolic pressure is 28 mmHg and systemic blood pressure of 147 mmHg in systole. Pericardium/Pleural The pericardium appears normal. There is trivial pericardial effusion with no tamponade. No pleural effusion visualized. Inferior Vena Cava Normal inferior vena cava with >50% collapse upon inspiration consistent with normal right atrial pressure, 3 mmHg. Aorta The aortic measurements are indexed to age and body surface area. The aortic root at the sinus of Valsalva is not well visualized. The prox ascending aorta is not well visualized. Summary 1. Left ventricle size is normal and systolic function is normal. Estimated ejection fraction is 60-65%. There is grade I diastolic dysfunction. 2. Right ventricle chamber size is normal and systolic function is normal. Estimated RVSP is 28 mmHg. 3. There is mild mitral and tricuspid valve regurgitation. Mild AV sclerosis noted. 4. Normal IVC with estimated RA pressure 3 mmHg. 5. Bubble study negative for any PFO or ASD. Report Signatures Finalized by Joseph Hoyt on 07/17/2025 01:03 AM
[2025-07-16 11:27] LABS: Glucose Estimated Average 120 mg/dL (80-131); Hemoglobin A1C 5.8 % Hgb (4.8-6.0)
[2025-07-16 14:31] LABS: T4 (Thyroxine) 9.1 mcg/dL (4.5-10.9)
[2025-07-16 14:46] LABS: Cardiac Risk Estimate 4.6 RATIO (3.7-5.6); Cholesterol 251 mg/dL (132-200); Free T3 3.1 pg/mL (2.3-4.2); HDL Cholesterol 54 mg/dL (40-60); LDL Cholesterol,Calculated 165 mg/dL (0-130); Thyroid Stimulating Hormone 1.04 uIU/mL (0.55-4.78); Triglycerides 159 mg/dL (30-150)
[2025-07-16] MEDS: MECLIZINE HCL 25 MG TABLET PO (17:52)
[2025-07-16] MEDS: ATORVASTATIN CALCIUM 20 MG TABLET 80 MG PO (20:34)
[2025-07-17] VITALS: BP 107/57; PULSE 76; RESP 12; TEMP 36.1; O2SAT 94
[2025-07-17 04:00] VITALS: BP 99/58; PULSE 82; PULSE 83; RESP 16; TEMP 36.2; O2SAT 98
[2025-07-17 05:49] LABS: Basophils # (Auto) 0.0 Thou/mm3 (0.0-0.2); Basophils % (Auto) 0 % (0-2.5); Eosinophils # (Auto) 0.1 Thou/mm3 (0.0-0.5); Eosinophils % (Auto) 2 % (0-10); Hematocrit 32.1 % (36.0-46.0); Hemoglobin 10.6 g/dL (12.0-16.0); Immature Granulocytes Auto 0.03 Thou/mm3 (0.00-0.00); Lymphocytes # (Auto) 2.9 Thou/mm3 (1.0-4.8); Lymphocytes % (Auto) 38 % (10-50); Mean Corpuscular HGB Conc 33.0 g/dl (31.0-37.0); Mean Corpuscular Hemoglobin 31.5 pg (25.0-35.0); Mean Corpuscular Volume 96 fL (80-100); Monocytes # (Auto) 0.7 Thou/mm3 (0.0-0.8); Monocytes % (Auto) 10 % (0-12); Neutrophils # (Auto) 3.9 Thou/mm3 (1.8-7.7); Neutrophils % (Auto) 50 % (37-80); Nucleated Red Blood Cell # 0.00 Thou/mm3 (0.00-0.00); Nucleated Red Blood Cell % 0 /100 WBC (0); Platelet Count 280 Thou/mm3 (140-440); RDW Standard Deviation 44.9 fL (36.4-46.3); Red Blood Count 3.36 Miln/mm3 (4.00-5.20); White Blood Count 7.7 Thou/mm3 (3.6-11.0)
[2025-07-17 06:17] LABS: Anion Gap 12 (7-16); BUN/Creatinine Ratio 19 Ratio (12-20); Blood Urea Nitrogen 19 mg/dL (9-23); Calcium 8.5 mg/dL (8.3-10.6); Carbon Dioxide 21.9 mMol/L (20.0-31.0); Chloride 111 mMol/L (98-107); Creatinine (Component) 1.0 mg/dL (0.6-1.3); Estimated Creatinine Clearance 64.2 mL/min (>60); Glucose 96 mg/dL (74-106); Magnesium 2.0 mg/dL (1.6-2.6); Osmolality,Calculated 290 (275-295); Phosphorous 4.1 mg/dL (2.4-5.1); Potassium 4.2 mMol/L (3.4-5.1); Sodium 145 mMol/L (136-145); eGFR > 60 See Note
[2025-07-17 08:00] VITALS: BP 132/75; PULSE 71; PULSE 80; RESP 14; TEMP 36.4; O2SAT 94
[2025-07-17] MEDS: ASPIRIN EC 81 MG TABEC PO (08:10)
[2025-07-17] MEDS: SODIUM CHLORIDE 0.9% 1000 ML 1,000 ML 100 ML IV ×2 (08:43→18:06)
--- NOTE | 2025-07-17 09:01 | PCS.ST ---
Interviewed during breakfast. No dysphagia. Cognitive/communication baseline. No formal ST services warranted.
--- NOTE | 2025-07-17 10:51 | ESPR_ITS ---
Documentation for date of: 07/17/25 Subjective - Hospitalist Subjective Interval history: Patient seen and examined at bedside this morning. Appears comfortable compared to yesterday. States that her headache has improved significantly and only has mild dizziness today. Underwent brain MRI yesterday, negative for stroke. Echocardiography showed normal left ventricular size and function, ejection fraction of 60 to 65%, negative bubble study. Awaiting physical therapy for evaluation of BPPV and in-house neurology recommendations. Review of Systems Review of Systems Systems Reviewed: All systems reviewed, normal except as documented Exam Vital Signs Temp Pulse Resp BP Pulse Ox O2 Del Method 96.9 F 75 15 117/79 96 Room Air 07/17/25 16:00 07/17/25 16:00 07/17/25 16:00 07/17/25 16:00 07/17/25 16:00 07/17/25 16:00 Narrative GENERAL: Well built male/female, in no acute distress, laying comfortably on bed HEENT: Normocephalic, atraumatic, extraocular movements intact, pupils equal and reactive to light NECK: Supple, no JVD or bruits. CARDIOVASULAR: RRR, S1 and S2 heard, without murmur, rubs or gallops. LUNGS/CHEST: Clear to auscultation bilaterally. No rails, rhonchi, or wheezing. ABDOMEN: Soft, nontender, with normal bowel sounds. No rebound, rigidity, or guarding. EXTREMITIES: No edema, clubbing or cyanosis. No joint deformity. Able to move all limbs. SKIN: Warm and dry without rashes. NEURO: Alert, awake and oriented x4. Cranial nerves: II through XII grossly intact. normal speech, able to answer questions and follow commands appropriately, strength and sensation normal and equal bilaterally, no focal neurological deficits PSYCHIATRIC: Normal mood and affect. Objective - Hospitalist Labs Diagram: 07/17/25 05:15 07/17/25 05:15 Labs: Laboratory Results - last 24 hr 07/17/25 05:15 WBC 7.7 RBC 3.36 L Hgb 10.6 L Hct 32.1 L MCV 96 MCH 31.5 MCHC 33.0 RDW Std Deviation 44.9 Plt Count 280 D Neut % (Auto) 50 Lymph % (Auto) 38 [place] % (Auto) 10 Eos % (Auto) 2 Baso % (Auto) 0 Neut # (Auto) 3.9 Lymph # (Auto) 2.9 [place] # (Auto) 0.7 Eos # (Auto) 0.1 Baso # (Auto) 0.0 Immature Gran # (Auto) 0.03 H Absolute Nucleated RBC 0.00 Immature Gran % 0 Nucleated RBC % 0 Sodium 145 Potassium 4.2 Chloride 111 H Carbon Dioxide 21.9 Anion Gap 12 BUN 19 Creatinine 1.0 Estim Creat Clear Calc 64.2 eGFR > 60 BUN/Creatinine Ratio 19 Glucose 96 Calculated Osmolality 290 Calcium 8.5 Phosphorus 4.1 Magnesium 2.0 Assessment & Plan Patient Synopsis Mrs. Peralta is a Georgian speaking, 55F with no known past medical history presented to the ED for dizziness and vertigo. GCS 15, NIHSS 0. Stroke alert initiated in ED with normal CT findings. Patient was admitted for CVA r/o. #Rule out CVA #BPPV #Dizziness #Peripheral vertigo #Headache Stroke alert initiated in the ED. GCS15, NIHSS0, no focal neuro deficit. Similar episode prior in 2022, was diagnosed with vertigo. - In-house neurology consulted, appreciate recs - MRI brain stroke protocol, negative for stroke - Echocardiogram with bubble study negative, ejection fraction 60 to 65% - PT/OT/Speech therapy - Head of bed elevation 30 degrees - Neuro Checks Q4H - Bedside Swallow Eval - Euglycemia and Avoid Hyperthermia (PRN Acetaminophen) - Zofran 4mg PRN - Meclizine 25mg PO PRN - ASA 81mg PO QD - Atorvastatin 80mg PO HS #Thyroid nodule CTA H/N noted circumscribed nodule in the left lobe of the thyroid gland. - TSH, T3 and T4 level within normal limits - Thyroid ultrasound showed bilateral thyroid nodules - Patient will need outpatient follow-up Health maintenance Dispo: Telemetry for evaluation of dizziness DVT prophylaxis: SCDs Diet: Regular diet Lines: Peripheral IV Code status: Full code Time Spent with Patient Time: Total time spent is greater than 50% in coordination of care (as documented) at patient's floor/unit and/or counseling patient: Time with patient: Greater than 35 minutes Reason for Continued Stay Reason for continued stay: further monitoring Quality Measures Quality Measures stroke Suspected type of Stroke: Non Acute Last known well (date): 07/15/25 Last known well (time): 20:30 Tenecteplase given: Reason(s) Tenecteplase not given: Outside the time window not given Rehab services: PT evaluation ordered and Speech Language Pathology eval ordered VTE Prophylaxis: mechanical Antithrombotic by day 2:: ordered Statin ordered: <75 y/o high intensity dose Anticoagulation ordered for A-fib or flutter (current or hx): not indicated
--- NOTE | 2025-07-17 10:51 | PC.PT ---
Received PT eval yesterday when patient was in the ER. Patient approached at 1030. Daughter at bedside. Patient states she can ambulate. She is just dizzy but she is able to ambulate with daughter to go to restroom just holding her hand because of dizziness. MMT on BLE/BUE 12/08. Patient is alert and oriented. Will cancel PT evaluation. Patient is S with ambulation.
[2025-07-17 12:00] VITALS: BP 144/79; PULSE 71; PULSE 79; RESP 23; TEMP 36.1; O2SAT 97
[2025-07-17] MEDS: ONDANSETRON INJ 2 MG/ML INJ 2 ML 4 MG IVP (13:06)
[2025-07-17] MEDS: MECLIZINE HCL 25 MG TABLET PO (13:08)
--- NOTE | 2025-07-17 13:30 | PC.SS ---
Radha Marion is a 55 year-old male admitted to [facility] for Dizziness, Vertago. SS conducted bedside contact with the patient to complete initial assessment and to discuss discharge planning. Role and reason explained. Patient confirmed demographic information. Patient identifies her dtr Kerrie Frank [phone] as his surrogate decision maker. Pt states she is able to complete all ADL?s independent. Pt does not possesses any DME. Pts PCP is at [facility] in [place] Dr. Godinez. Pharmacy of choice is [facility]. Discharge options discussed and the pt wishes to return home.? Pt family will provide transport. No further intervention required at this time, social media senior associate would be available to address any further concerns. DC Plan: Home Contact: anne Carrasquillo Address: Confirmed on face sheet
[2025-07-17 16:00] VITALS: BP 117/79; PULSE 74; PULSE 75; RESP 15; TEMP 36.1; O2SAT 96
[2025-07-17 20:00] VITALS: BP 145/82; PULSE 61; RESP 17; TEMP 36.2; O2SAT 98
[2025-07-17] MEDS: ATORVASTATIN CALCIUM 20 MG TABLET 80 MG PO (20:17)
[2025-07-18] VITALS (7 sets, daily range): BP systolic 106–148; BP diastolic 57–85; PULSE 56–84; RESP 16–20; TEMP 36.1–36.6; O2SAT 94–98; BMI 30.9; BMI 14.0
[2025-07-18] MEDS: SODIUM CHLORIDE 0.9% 1000 ML 1,000 ML 100 ML IV (05:06)
[2025-07-18 06:19] LABS: Basophils # (Auto) 0.0 Thou/mm3 (0.0-0.2); Basophils % (Auto) 0 % (0-2.5); Eosinophils # (Auto) 0.2 Thou/mm3 (0.0-0.5); Eosinophils % (Auto) 3 % (0-10); Hematocrit 31.0 % (36.0-46.0); Hemoglobin 10.2 g/dL (12.0-16.0); Immature Granulocytes Auto 0.03 Thou/mm3 (0.00-0.00); Lymphocytes # (Auto) 2.8 Thou/mm3 (1.0-4.8); Lymphocytes % (Auto) 46 % (10-50); Mean Corpuscular HGB Conc 32.9 g/dl (31.0-37.0); Mean Corpuscular Hemoglobin 31.3 pg (25.0-35.0); Mean Corpuscular Volume 95 fL (80-100); Monocytes # (Auto) 0.6 Thou/mm3 (0.0-0.8); Monocytes % (Auto) 10 % (0-12); Neutrophils # (Auto) 2.4 Thou/mm3 (1.8-7.7); Neutrophils % (Auto) 40 % (37-80); Nucleated Red Blood Cell # 0.00 Thou/mm3 (0.00-0.00); Nucleated Red Blood Cell % 0 /100 WBC (0); Platelet Count 250 Thou/mm3 (140-440); RDW Standard Deviation 45.1 fL (36.4-46.3); Red Blood Count 3.26 Miln/mm3 (4.00-5.20); White Blood Count 6.1 Thou/mm3 (3.6-11.0)
[2025-07-18 06:43] LABS: Anion Gap 10 (7-16); BUN/Creatinine Ratio 21 Ratio (12-20); Blood Urea Nitrogen 19 mg/dL (9-23); Calcium 8.5 mg/dL (8.3-10.6); Carbon Dioxide 23.5 mMol/L (20.0-31.0); Chloride 111 mMol/L (98-107); Creatinine (Component) 0.9 mg/dL (0.6-1.3); Estimated Creatinine Clearance 71.3 mL/min (>60); Glucose 87 mg/dL (74-106); Magnesium 1.9 mg/dL (1.6-2.6); Osmolality,Calculated 288 (275-295); Phosphorous 3.4 mg/dL (2.4-5.1); Potassium 3.9 mMol/L (3.4-5.1); Sodium 144 mMol/L (136-145); eGFR > 60 See Note
[2025-07-18] MEDS: ASPIRIN EC 81 MG TABEC PO (08:11)
--- NOTE | 2025-07-18 08:58 | ESDS_ITS ---
<Statement entered by Keny Bennett MD - 07/18/25 12:42> In summary: A 55-year-old female with no known past medical history presented to the ED with dizziness and vertigo and was admitted for stroke workup with negative imaging, including MRI. Echo was done showing EF 60-65% with negative bubble study. EKG showed sinus rhythm. Her symptoms have resolved since admission. She completed physical therapy evaluation and had no residual vertigo or dizziness. Neurology cleared for discharge and recommended outpatient physical therapy. Of note, CT showed left thyroid nodule for which bilateral thyroid ultrasound was done showing 5.2 cm right thyroid nodule and 5.6 cm left thyroid nodules. We recommended outpatient fine-needle aspiration. I?ve reviewed the note and agree with this assessment and plan, with the exceptions outlined above. I personally went over the labs, imaging, home medications, and prior records, and examined the patient. The case was also reviewed with the attending physician. Please note: this document was transcribed using voice recognition technology; minor inaccuracies may be present. Keny Bennett DO PGY II Planned Discharge Date 07/18/25 DS: Providers Provider Date of admission: 07/16/25 10:07 Primary care physician: Physician No Primary/Family Admitting Provider: Se Campbell MD Attending Provider on Admission: Se Campbell MD Consults: 07/16/25 08:19 Consult to Neurology / Tele-Neurology Routine Comment: Consulting Provider: [facility] 07/16/25 11:00 Consult to Neurology / Tele-Neurology Routine Comment: Consulting Provider: Skyler Wells 07/16/25 11:01 Referral Occupational Therapy Routine Comment: Referral Speech Therapy Routine Comment: 07/17/25 16:22 Referral Physical Therapy Routine Comment: Physician Instructions: Instructions: Assess for BPPV Attending Provider on DC: Se Campbell MD Discharging Provider: Ernie Holt DO Anticipated date of discharge: 07/18/25 DS: Diagnosis Problem List Completed Was Problem List Reviewed/Reconciled?: Yes Hospital Course Hospital Course Hospital course: Mrs. Peralta is a Malay speaking, 55F with no known past medical history presented to the ED for dizziness and vertigo. Patient reported at approximately 6AM on 07/16/25 she started to experience dizziness that was worse with motion, causing her to feel nauseous and subsequently vomit. She had similar episode in 2022 around Winter time, where she was diagnosed with vertigo. Patient had no prior history of TIA, stroke, heart disease, DVT, or clotting disorder. Given her symptoms, a stroke alert was initiated in the ED. CT head is negative for acute findings and CTA negative for LVO. Tele-Neuro was consulted by ED team. Given negative CT head findings and LWK last night, she was not a candidate for thrombolytic. On initial exam, patient was GCS 15 with no focal neuro deficit. CN II - XII intact. No nuchal rigidity, negative Brudzinski's. She was admitted for CVA rule out. Of note, an incidental enlarged thyroid nodule was noted on CTA scan. A thyroid US was ordered, which reveal large nodule in the mid left thyroid lobe. Thyroid panel returned WNL, and this finding was discussed with patient, where she was advised to follow up with PCP for further monitoring and possible ultrasound-guided fine-needle aspiration. On day 1 of admission, echocardiogram study returned negative for bubble study. MRI head negative for acute hemorrhage, mass effect, or midline shift. No acute infarct or significant carotid stenoses. Physical therapy was consulted on this admission, where she underwent Durand-Hallpike testing for BPPV. Findings consistent with BPPV. She was recommended to be discharged home with out-patient physical therapy. On day of discharge, patient no longer complain of any vertigo or dizziness, and was able to ambulate independently without loss of balance or nausea. At this time, patient is medically and physically stable for discharge for home. All questions and concerns addressed, plan of care discussed with patient, return precautions given. Diagnosis: #Hyperlipidemia #BPPV #Dizziness #Peripheral vertigo #Headache #Rule out CVA #Thyroid nodule Discharge Plan: Follow up with primary care physician within 1 week of discharge Instructions have been explained to the patient with regards to their medications and how to take them. Patient was able to explain back to physician and nursing staff how to take their medications. Patient expressed understanding with instructions. Recommended outpatient physical therapy, please discuss with your PCP. Please follow up with your PCP for futher management of your thyroid nodules. New Medications: Please take Meclizine 25mg as needed for dizziness. Please take Ondansetron (Zofran) 4mg as needed for nausea. Continue to take the rest of your medications as prescribed by your primary care physician. Patient has been explained that should any symptoms recur or worsen patient is instructed to return to the Emergency Department. Case discussed with my senior resident Dr. Bennett Case discussed with my attending Dr. Adrian Holt DO PGY 1 Status at Discharge Overall status at discharge: patient is back to baseline Time Spent with Patient Time attestation: Total time spent providing and/or coordinating discharge services: 33 minutes Time spent: Greater than 30 minutes Exam Vital Signs Temp Pulse Resp BP Pulse Ox O2 Del Method 97.8 F 84 16 127/74 98 Aerosol Mask 07/18/25 04:00 07/18/25 04:00 07/18/25 04:00 07/18/25 04:00 07/18/25 04:00 07/18/25 04:00 Narrative Exam General: Awake and in no acute distress. A/O x 3. GCS 15. Conversational. HEENT: Normocephalic, atraumatic. Heart: Regular rate and rhythm Lungs: Clear to auscultation with no wheezing or crackles. Abdomen: Soft, nondistended, nontender. No guarding or rebound tenderness. Neurologic: Alert and oriented x3, no gross neurological deficit, and patient able to move all 4 extremities. CN II-XII intact. Extremities: 5/5 strength in both UE and LE. Slight decrease in sensation in LLE. Able to ambulate independently. Skin: Dry, clean, intact. No rash. No ecchymoses. Discharge Plan Plan Patient Disposition: HOME (Self Care) Patient condition on transfer: Stable Care Plan Goals: Follow up with primary care physician within 1 week of discharge Instructions have been explained to the patient with regards to their me dications and how to take them. Patient was able to explain back to physician and nursing staff how to take their medications. Patient expressed understanding with instructions. Recommended outpatient physical therapy, please discuss with your PCP. Please follow up with your PCP for futher management of your thyroid nodules. New Medications: Please take Meclizine 25mg as needed for dizziness. Please take Ondansetron (Zofran) 8mg as needed for nausea. Continue to take the rest of your medications as prescribed by your primary care physician. Patient has been explained that should any symptoms recur or worsen patient is instructed to return to the Emergency Department. Prescriptions/Referrals Prescriptions/Med Rec: New meclizine 25 mg Tablet 25 mg PO TID PRN (Reason: Dizziness) 30 Days Qty: 90 0RF ondansetron 8 mg tablet,disintegrating 8 mg PO Q12H PRN (Reason: nausea and vomiting) Qty: 30 0RF Continued albuterol sulfate [ProAir HFA] 8.5 GM HFA aerosol inhaler 2 puff Inhalation Q6HR PRN (Reason: WHEEZING) Qty: 1 0RF Rx Instructions: please give spacer cyanocobalamin (vitamin B-12) [Vitamin B-12] 1,000 MCG tablet 1,000 mcg PO QDAY Qty: 0 ferrous sulfate [Feosol] 1 TAB tablet 325 mg PO BIDWM Qty: 0 Hydrocodone/Acetaminophen * (NORCO 5/325 *) 1 TAB tablet 1 tab PO Q4H PRN (Reason: ABDOMINAL PAIN) Qty: 30 0RF Ca-D3-mag rb-vowa-cap-mindy-bor [Calcium 600-D3 Plus (mag-zinc)] 600 mg calcium- 20 mcg-50 mg tablet 1 tab PO QDAY Qty: 30 2RF Discontinued meclizine 25 mg tablet 25 mg PO TID PRN (Reason: dizziness) Qty: 10 0RF ondansetron 4 mg tablet,disintegrating 4 mg PO Q8H PRN (Reason: nausea and vomiting) Qty: 14 0RF meclizine [Antivert] 50 mg tablet 50 mg PO BID PRN (Reason: dizziness) Qty: 30 0RF ondansetron 4 mg tablet,disintegrating 4 mg PO Q8H PRN (Reason: nausea and vomiting) Qty: 20 0RF Referrals: No Primary/Family,Physician [Primary Care Provider] Patient/Caregiver Discharge Instructions Education Materials: Discharge Instructions for Stroke Print Language: Malay Stand Alone Forms: Mena Award Info., Patient Portal Info Letter Discharge Order Discharge Orders: Discharge (Routine); Ordered 07/18/25 Ordered By: Keny Bennett Quality Discharge Quality Measures none MD Attestestation MD Attestation I have seen and examined the patient. I was physically present for the [place] portions of the services provided including history, physical exam, diagnosis, treatment plans and orders. I agree with assessment and plan of care as documented by residents. Even though this this note was carefully revised there may still be minor errors in assistant chief train dispatcher due to voice recognition software. Se Campbell MD
--- NOTE | 2025-07-18 13:38 | PD.VPROG1 ---
Telemedicine visit statement This visit was conducted with the use of interactive audio and video telecommunications system that permits real time communication between the patient and the provider. Patient's verbal consent for virtual visit was obtained on 07/18/25 at 1338. Documentation for date of: 07/18/25 Virtual exam Vital Signs Temp Pulse Resp BP Pulse Ox O2 Del Method 97.2 F 70 20 122/68 96 Room Air 07/18/25 08:00 07/18/25 08:00 07/18/25 08:00 07/18/25 08:00 07/18/25 08:00 07/18/25 08:00 Objective Labs 07/18/25 04:46 07/18/25 04:46 Labs: Laboratory Results - last 24 hr 07/18/25 04:46 WBC 6.1 RBC 3.26 L Hgb 10.2 L Hct 31.0 L MCV 95 MCH 31.3 MCHC 32.9 RDW Std Deviation 45.1 Plt Count 250 D Neut % (Auto) 40 Lymph % (Auto) 46 [place] % (Auto) 10 Eos % (Auto) 3 Baso % (Auto) 0 Neut # (Auto) 2.4 Lymph # (Auto) 2.8 [place] # (Auto) 0.6 Eos # (Auto) 0.2 Baso # (Auto) 0.0 Immature Gran # (Auto) 0.03 H Absolute Nucleated RBC 0.00 Immature Gran % 1 H Nucleated RBC % 0 Sodium 144 Potassium 3.9 Chloride 111 H Carbon Dioxide 23.5 Anion Gap 10 BUN 19 Creatinine 0.9 Estim Creat Clear Calc 71.3 eGFR > 60 BUN/Creatinine Ratio 21 H Glucose 87 Calculated Osmolality 288 Calcium 8.5 Phosphorus 3.4 Magnesium 1.9
--- NOTE | 2025-07-18 13:38 | PD.VPROG1 ---
Telemedicine visit statement This visit was conducted with the use of interactive audio and video telecommunications system that permits real time communication between the patient and the provider. Patient's verbal consent for virtual visit was obtained on 07/18/25 at 1338. Documentation for date of: 07/18/25 Virtual exam Vital Signs Temp Pulse Resp BP Pulse Ox O2 Del Method 97.2 F 70 20 122/68 96 Room Air 07/18/25 08:00 07/18/25 08:00 07/18/25 08:00 07/18/25 08:00 07/18/25 08:00 07/18/25 08:00 Objective Labs 07/18/25 04:46 07/18/25 04:46 Labs: Laboratory Results - last 24 hr 07/18/25 04:46 WBC 6.1 RBC 3.26 L Hgb 10.2 L Hct 31.0 L MCV 95 MCH 31.3 MCHC 32.9 RDW Std Deviation 45.1 Plt Count 250 D Neut % (Auto) 40 Lymph % (Auto) 46 [place] % (Auto) 10 Eos % (Auto) 3 Baso % (Auto) 0 Neut # (Auto) 2.4 Lymph # (Auto) 2.8 [place] # (Auto) 0.6 Eos # (Auto) 0.2 Baso # (Auto) 0.0 Immature Gran # (Auto) 0.03 H Absolute Nucleated RBC 0.00 Immature Gran % 1 H Nucleated RBC % 0 Sodium 144 Potassium 3.9 Chloride 111 H Carbon Dioxide 23.5 Anion Gap 10 BUN 19 Creatinine 0.9 Estim Creat Clear Calc 71.3 eGFR > 60 BUN/Creatinine Ratio 21 H Glucose 87 Calculated Osmolality 288 Calcium 8.5 Phosphorus 3.4 Magnesium 1.9
== END 2025-07-18 17:56 | disposition home or self-care (01) | DRG 111 ==
LOC: SERX 10:04 → SERHOLD 10:22 → S2NX 14:38
PROVIDERS: Physician Assistant; Admitting Provider Student in an Organized Health Care Education/Training Program; Emergency Provider Family Medicine; Visit Provider Student in an Organized Health Care Education/Training Program
DX: H81.10 Benign paroxysmal vertigo, unspecified ear (principal); E78.5 Hyperlipidemia, unspecified; E04.2 Nontoxic multinodular goiter; F41.9 Anxiety disorder, unspecified
CPT/HCPCS: 36415; 70450; 70496; 70498; 70544; 71045; 76536; 80048; 80053; 80061; 80307; 81001; 83036; 83735; 84100; 84436; 84443; 84481; 84484; 84703; 85025; 85610; 85730; 93005; 93306; 96361; 96374; 97162; 99285; A4649; J2405; J7030; Q9967; A9270